=== PATIENT | female | born 1965 | race Caucasian/White ===

== ENCOUNTER 2016-10-16 10:39 | Emergency (ER) | payer OTHER ==
[~2016-10-16] VITALS: Ht 154.9 cm; Wt 62.1 kg
[~2016-10-16 10:39] MED LIST: ASPIRIN325 M2 PO; CIPRO500 MG PO; CLONIDINE HCL0.1 MG PO; CYCLOBENZAPRINE5 M2 PO; DILAUDID2 M1 PO; DILAUDID2 MG PO; DOK100 MG PO; ELIQUIS5 M1 PO; FLAG500 PO; GABAPENTIN300 M2 PO; HYDROMORPHONE HC2 M1 PO; HYDROMORPHONE HC2 MG PO; LEVSIN/SL0.125 MG SL; MEDROL4 M2 PO; METOPROLOL TART25 M1 PO; METOPROLOL TART50 M1 PO; MORPHINE SULFAT15 M3 PO; MORPHINE SULFAT30 M3 PO; OMEPRAZOLE20 M2 PO; PHENERGAN12.5 M2 RC; POTASSIUM CHLO10 ME3 PO; SENEXON8.6 MG PO; SENNA PLUS 50 M1 TAB PO; SERTRALINE HCL100 MG PO; SERTRALINE HYD100 MG PO; SUCRALFATE1 GM/10 M1 PO; TYLENOL EXTRA500 M2 PO; ZOFRAN ODT4 MG PO; ZOFRAN4 M2 PO; ZOFRAN4 M2 SL
--- NOTE | 2016-10-16 11:51 | ED GI/GU/ABDOMINAL COMPLAINT ---
History of Present Illness General Chief Complaint: General Adult Stated Complaint: N/V Source: patient, old records Exam Limitations: no limitations Vital Signs & Intake/Output Vital Signs & Intake/Output Vital Signs Date Time Temp Pulse Resp B/P Pulse O2 O2 Flow FiO2 Ox Delivery Rate 10/16 1358 98.8 88 18 120/72 97 Room Air Room Air 10/16 1216 98.5 86 20 117/73 96 Room Air Room Air 10/16 1200 Room Air 10/16 1043 96.6 130 20 128/90 97 Room Air Allergies Coded Allergies: hydrocodone (From VICODIN) (Intermediate, HIVES 06/19/16) oxycodone (From PERCOCET) (Intermediate, BUMPS, RASH, THROATS CLOSES, ITCHING ) Reconcile Medications Acetaminophen (Tylenol Extra Strength) 500 MG TABLET 1 TAB PO Q8P PRN PAIN Clonidine HCl 0.1 MG TABLET 1 TAB PO TID OPIATE WITHDRAWAL Cyclobenzaprine HCl 5 MG TABLET 1 TAB PO QPM PRN MUSCLE SPASMS Gabapentin 300 MG CAPSULE 1 CAP PO QHS OPIOID WITHDRAWL Hydromorphone HCl (Dilaudid) 2 MG TABLET 1 TAB PO BIDP PRN PAIN Methylprednisolone. (Medrol) 4 MG TAB.DS.PK 1 DP PO AD BACK PAIN 6 on day 1 then reduce by one tablet daily until gone Metoprolol Tartrate 25 MG TABLET 12.5 MG PO BID OPIOD WITHDRAWL Omeprazole 20 MG CAPSULE.DR 40 MG PO BID GI BLEED Omeprazole Magnesium (Prilosec Otc) 20 MG TABLET.DR 1 TAB PO BID GI Ondansetron HCl (Zofran) 4 MG TABLET 1 TAB SL Q6-8P PRN NAUSEA Promethazine HCl 25 MG TABLET 1 TAB PO Q6P PRN NAUSEA Sucralfate 1 GRAM/10 ML ORAL.SUSP 1 GM PO TIDAC/HS GI BLEED Triage Note: PT TO ED C/O N/V, NO APPETITE, LETHARGY. PT WAS ON ZOLOFT, AND WAS TOLD TO COME OFF BY HER PSYCHIATRIST DUE TO ? TOO HIGH OF A DOSE. PT WAS EXPERIENCING TWITCHING AND POST-NASAL DRIP FROM ? TOO MUCH ZOLOFT. PT TOOK LAST DOSE ON Sunday10/12/16. Triage Nurses Notes Reviewed? yes ? N Is pt currently ? No HPI: 51 -year-old female with 6 days of nausea and vomiting, states that her vomiting is darker now, dark brown or black in color, several times per day. Patient has been complaining of feeling numbness and tingling in her arms and her doctor thought this may be due to her Zoloft dose being too high (150MG QD), saw HER-2 weeks ago for this, they told her to stop the Zoloft. It was not tapered. Since then she has had Moderate to severe nausea. She is having loose black stool. She saw her primary care doctor for this and they thought maybe that it was her Zoloft dose being too high and they discontinued it and since 2 days after discontinue she has had nausea and vomiting symptoms and feeling shaky and anxious.. She denies any abdominal pain, she has history of Crohn's disease, multiple abdominal surgeries, colon resection, ileostomy and colostomy with reversal's. She was also admitted here in May with hematemesis and becoming hypotensive,. Dr. Shen did an endoscopy in emergency and found that she is having large Karime-Durand tear within hiatal hernia, which was cauterized to achieve hemostasis. SHE IS ON ELIQUIS FOR PAROXYSMAL AFIB Past History Travel History Traveled to [place] past 21 day No Medical History Any Pertinent Medical History? see below for history Neurological: NONE EENT: NONE Cardiovascular: AFIB, CARDIAC ABLATION Respiratory: NONE Gastrointestinal: colitis, Crohn's disease, diverticulitis, irritable bowel syndrome Hepatic: NONE Renal: NONE Musculoskeletal: NONE Psychiatric: NONE Endocrine: NONE Blood Disorders: NONE Cancer(s): ovarian cancer KEY ACCOUNT COORDINATOR/Reproductive: NONE History of MRSA: No History of VRE: No History of CDIFF: No Surgical History Surgical History: colon resection, hysterectomy Psychosocial History Who do you live with Spouse Services at Home Nursing What is your primary language Georgian Tobacco Use: Quit <30 days ago ETOH Use: denies use Illicit Drug Use: denies illicit drug use Family History Family History, If Any: SISTER (Hyperthyroidism). FATHER (Heart problems, however father is estranged and patient does not know specific details.). Hx Contributory? No Review of Systems Review of Systems Constitutional: Reports: see HPI. EENTM: Reports: no symptoms. Respiratory: Reports: no symptoms. Cardiovascular: Reports: no symptoms. GI: Reports: see HPI. Genitourinary: Reports: no symptoms. Musculoskeletal: Reports: no symptoms. Skin: Reports: no symptoms. Neurological/Psychological: Reports: no symptoms. Hematologic/Endocrine: Reports: no symptoms. Immunologic/Allergic: Reports: no symptoms. All Other Systems: Reviewed and Negative Physical Exam Physical Exam General Appearance: well developed/nourished Respiratory: normal breath sounds, chest non-tender, no respiratory distress Cardiovascular: tachycardia (, RRR) Gastrointestinal: normal bowel sounds, soft, non-tender, WELL-HEALED SURGICAL SCARS NOTED. nO DISTENTION. nORMOACTIVE BOWEL SOUNDS Comments: Patient appears uncomfortable, nauseous, dark brown emesis noted in basin which was Hemoccult tested and heme positive. HEENT: Atraumatic, extraocular motion intact dry mucous membranes, Neck: Supple, no lymphadenopathy Back: Nontender Respiratory: No respiratory distress Extremities: No edema, full range of motion Neuro: Alert and oriented x3 Psych: Mood affect normal, normal memory normal judgment. Skin: Warm and dry, no rash on exposed skin Core Measures ACS in differential dx? No Severe Sepsis Present: No Septic Shock Present: No Progress Differential Diagnosis: AAA, AMI, appendicitis, biliary colic, bowel obstruction , colon cancer, cholecystitis, diverticulitis, ectopic , endometritis, esophageal varices, gastritis, hepatitis, hernia, hemorrhoids, ischemic bowel, inflamm bowel dis, intrauterine , kidney stone, Karime-Ruth Ann tear, ovarian cyst, ovarian torsion, pancreatitis, PID/cervicitis, peptic ulcer, PUD/ GERD, perforated viscous, SBO, threatened AB, UTI/pyelo Plan of Care: Orders Procedure Date/time Status LACTIC ACID 10/16 1430 Active Saline Lock 10/16 1130 Active MAGNESIUM 10/16 1130 Complete LACTIC ACID 10/16 1130 Complete COMPREHENSIVE METABOLIC PANEL 10/16 1130 Complete CBC WITHOUT DIFFERENTIAL 10/16 1130 Complete EKG 10/16 1130 Active Laboratory Tests 10/16/16 1145: Anion Gap 15, Estimated GFR > 60, BUN/Creatinine Ratio 21.4, Glucose 153 H, Lactic Acid 2.0, Calcium 10.1, Magnesium 1.7, Total Bilirubin 0.7, AST 22, ALT 28, Alkaline Phosphatase 111, Total Protein 8.0, Albumin 4.8, Globulin 3.2, Albumin/Globulin Ratio 1.5, CBC w Diff NO MAN DIFF REQ, RBC 5.41 H, MCV 83.2, MCH 27.6, RDW 16.5 H, MPV 9.5, Gran % 72.4, Lymphocytes % 17.7 L, Monocytes % 9.0, Eosinophils % 0.3, Basophils % 0.6, Absolute Granulocytes 8.1 H, Absolute Lymphocytes 2.0, Absolute Monocytes 1.0 H, Absolute Eosinophils 0, Absolute Basophils 0.1, PUBS MCHC 33.2 Initial ED EKG: NSR, rate (95), nonspecific ST T wave chg Prior EKG: unchanged Comments: tx with ivf, zofran with cont nausea on re eval. given phenergan and protonix due to trace blood in vomitus,. labs unremarkable. abd non tender. sx are cw zoloft withdrawal. rec she restarts the zoloft at 100mg per day and tapers over the course of several weeks to months, she is to dw her pcp. Departure Departure Disposition: HOME OR SELF CARE Condition: Stable Clinical Impression Primary Impression: Nausea & vomiting Qualifiers: Vomiting type: unspecified Vomiting Intractability: non-intractable Qualified Code: R11.2 - Nausea with vomiting, unspecified Secondary Impressions: Medication withdrawal Qualifiers: Substance type: other psychoactive substance Qualified Code: F19.939 - Other psychoactive substance use, unspecified with withdrawal, unspecified Referrals: CHELO VELEZ (PCP/Family) Additional Instructions: Start taking omeprazole twice daily for possible stomach ulcers Take Phenergan for nausea Your symptoms could be from withdrawal of the Zoloft, start taking the medication again at 100 mg per day (decreased from 150 mg per day) and contact your primary care doctor to slowly taking off the Zoloft over the course of several months to avoid withdrawal symptoms Departure Forms: Customer Survey General Discharge Information Prescriptions: Current Visit Scripts Omeprazole Magnesium (Prilosec Otc) 1 TAB PO BID #30 TAB Promethazine HCl 1 TAB PO Q6P PRN NAUSEA #20 TAB
[2016-10-16 11:59] LABS: ABSOLUTE BASOPHIL COUNT 0.1 /CUMM (0.0-0.2); ABSOLUTE EOSINOPHIL COUNT 0 /CUMM (0.0-0.7); ABSOLUTE GRANULOCYTE CT 8.1 /CUMM (1.4-6.5); BASOPHIL % 0.6 % (0.0-2.0); EOSINOPHIL % 0.3 % (0-5); GRANULOCYTE % 72.4 % (42.2-75.2); MEAN CORPUSCULAR HGB 27.6 PG (27.0-31.0); MEAN CORPUSCULAR HGB CONC 33.2 G/DL (33.0-37.0); MEAN CORPUSCULAR VOLUME 83.2 FL (81.0-99.0); MEAN PLATELET VOLUME 9.5 FL (7.4-10.4); PLATELET COUNT 277 /CUMM (130-400); RBC DISTRIBUTION WIDTH 16.5 % (11.5-14.5); RED BLOOD CELL CT 5.41 /CUMM (4.20-5.40); WHITE BLOOD CELL COUNT 11.2 /CUMM (4.8-10.8)
[2016-10-16] MEDS ORDERED: PROMETHAZINE HC25 M3 PO (13:43)
[2016-10-16] MEDS ORDERED: PRILOSEC OTC20 M1 PO (13:43)
[2016-10-16 13:58] VITALS: BP 120/72
== END 2016-10-16 13:59 ==
LOC: ERH 10:39
PROVIDERS: Physician Assistant Surgical
DX: F19.239 Other psychoactive substance dependence with withdrawal, unspecified (principal); R11.2 Nausea with vomiting, unspecified
CPT/HCPCS: 93005; 93010; 96374; 96375; J2405; J2550

== ENCOUNTER 2017-03-07 09:09 | Emergency (ER) | payer OTHER ==
[~2017-03-07] VITALS: Ht 154.9 cm; Wt 68.0 kg
[~2017-03-07 09:09] MED LIST changes: +PRILOSEC OTC20 M1 PO; +PROMETHAZINE HC25 M3 PO
[2017-03-07 09:21] VITALS: BP 120/87
== END 2017-03-07 09:46 | disposition admitted as inpatient to this hospital (09) ==
LOC: ERH 09:09
DX: R06.02 Shortness of breath (principal)
CPT/HCPCS: 93005; 93010; 99281